=== PATIENT | female | born 1950 | race Caucasian/White ===

== ENCOUNTER 2023-09-18 22:49 | Emergency (ER) | payer MEDICARE, SELFPAY ==
[2023-09-18 22:57] VITALS: BP 198/98; PULSE 81; RESP 16; TEMP 36.4; O2SAT 98; BMI 27.9
--- NOTE | 2023-09-18 23:01 | CT_ITS ---
Patient: KATHY CALIXTO Facility:?[facility] RIS Patient ID:?[id number] Site Patient ID:?[id number]. Site :?[id number] Study:?CT-Spine Cervical-09/18/2023 11:39:54 PM Ordering Physician:Aspen Final Report: Indication: Injury, fall backwards, back of head impact Technique: Noncontrast CT through the cervical spine with multiplanar reformats Comparison: None Findings: Alignment: Nonspecific straightening of the normal lordotic curvature. Slight leftward lateral listing, may be positional. Bones: Postoperative changes are noted from C3-C7 ACDF and C3-T1 posterior edmundo and screw fixation with C5-6 laminectomies. No evidence hardware failure or loosening. No acute fracture appreciated. No lytic or blastic lesion is seen. Cervical levels: Mild degenerative changes at the unfused levels with no acute abnormality appreciated. Soft tissues: No acute abnormality appreciated. Impression: Extensive postsurgical changes to the cervical spine with no acute abnormality appreciated. Please note that all CT scans at this facility use dose modulation, iterative reconstruction, and/or weight-based dosing when appropriate to reduce radiation dose to as low as reasonably achievable. Dictated by Vincent Vivar MD @ 09/18/2023 11:53:00 PM Signed by:?Vincent Vivar MD @09/18/2023 11:53:00 PM (Electronic Signature)
--- NOTE | 2023-09-18 23:01 | CT_ITS ---
Patient: KATHY CALIXTO Facility:?[facility] RIS Patient ID:?[id number] Site Patient ID:?[id number]. Site :?1950 Study:?CT-Head-09/18/2023 11:40:59 PM Ordering Physician:Aspen Final Report: Indication: Injury, fall backwards, back of head impact Technique: Noncontrast CT through the head with multiplanar reformats Comparison: None Findings: Brain: No acute hemorrhage. No acute infarct. No significant mass effect or midline shift. No gross evidence of a mass lesion or cerebral edema. Mild global parenchymal volume loss. Mild chronic microvascular ischemic disease. Ventricles: No acute abnormality appreciated. Orbits, sinuses, mastoids: No acute abnormality appreciated. Calvarium and soft tissues: No acute abnormality appreciated. Impression: No acute abnormality appreciated. Please note that all CT scans at this facility use dose modulation, iterative reconstruction, and/or weight-based dosing when appropriate to reduce radiation dose to as low as reasonably achievable. Dictated by Vincent Vivar MD @ 09/18/2023 11:55:01 PM Signed by:?Vincent Vivar MD @09/18/2023 11:55:01 PM (Electronic Signature)
--- NOTE | 2023-09-18 23:01 | CT_ITS ---
Patient: KATHY CALIXTO Facility:?[facility] RIS Patient ID:?[id number] Site Patient ID:?[id number]. Site :?1950 Study:?CT-Spine Lumbar without contrast-09/18/2023 11:42:19 PM Ordering Physician:Aspen Final Report: Indication: Injury, fall backwards, impact the lumbar spine Technique: Noncontrast CT through the lumbar spine with multiplanar reformats Comparison: None Findings: Alignment: Mild L4-5 anterolisthesis. Trace leftward curvature. Bones: No acute fracture. No lytic or blastic lesion. Transitional anatomy noted with partial lumbarization of S1 and a near-complete S1-2 disc space. Lumbar levels: No acute abnormality appreciated. Multilevel degenerative changes. Suspect severe central stenosis at L4-5 and L5-S1 severe foraminal narrowing noted at L5-S1. Soft tissues: No acute abnormality appreciated. Impression: Severe lower lumbar degenerative changes with no acute abnormality appreciated. Please note that all CT scans at this facility use dose modulation, iterative reconstruction, and/or weight-based dosing when appropriate to reduce radiation dose to as low as reasonably achievable. Dictated by Vincent Vivar MD @ 09/18/2023 11:58:42 PM Signed by:?Vincent Vivar MD @09/18/2023 11:58:42 PM (Electronic Signature)
--- NOTE | 2023-09-18 23:05 | ED_ITS ---
HPI - Head Injury General Chief complaint: Head Injury/Pain Stated complaint: Fell, hit head Time Seen by Provider: 09/18/23 22:52 Source: patient Mode of arrival: ambulatory Limitations: no limitations History of Present Illness HPI Narrative: Patient is a 72-year-old female with a history of high cholesterol presenting to the emergency department after a fall. She states she was bending over to pick something up when she has lost her balance falling forward hitting her head on the ground. She states she hit her forehead. Does have tenderness to her forehead and took some Tylenol prior to coming. She spoke to the triage nurse and was told to come in. She is not currently on any blood thinners. She does states she also hit her right elbow and knee but the pain is rather minimal at this time and she has full range of motion. She has been able to walk without issue. Also complains of neck pain after the fall, for which she has had surgeries for in the past, and lower lumbar pain. Denies any lightheadedness or dizziness before or after the fall. She is acting at her baseline at this time according to her daughter. No other concerns noted. Related Data Home Medications Medication Instructions Recorded Confirmed atorvastatin 20 mg tablet 20 mg PO DAILY 09/18/23 09/18/23 duloxetine 60 mg capsule,delayed 60 mg PO DAILY 09/18/23 09/18/23 release gabapentin 100 mg capsule 100 mg PO QAM 09/18/23 gabapentin 300 mg capsule mg PO 09/18/23 Allergies Allergy/AdvReac Type Severity Reaction Status Date / Time Sulfa (Sulfonamide Allergy Verified 09/18/23 23:02 Antibiotics) penecillin Allergy Uncoded 09/18/23 23:02 Review of Systems Narrative: Pertinent systems reviewed and were negative unless stated in HPI PFSH PFS Social History Do you use any of these nicotine containing products: None Non-prescribed substance use: denies use Exam Narrative: Exam Narrative: Const: Well-nourished, Well-developed, in mild distress Eyes: PERRL, no conjunctival injection, and symmetrical lids HENT: Atraumatic external nose and ears. Moist mucous membranes. Hematoma noted to forehead Neck: Symmetric, trachea midline, No thyromegaly. CVS: RRR, No murmurs or gallops. Peripheral pulses 2+ and equal in all extremities RESP: Unlabored respiratory effort. Clear to auscultation bilaterally. GI: Nontender/Nondistended, No rebound or guarding. MSK:Extremities w/o deformity, Normal Active ROM, tenderness noted to midline lower lumbar around L4-L5 and midline cervical spine around C4 Skin: Warm, Dry. No rashes or lesions. Neuro: Normal Muscle tone, No focal neurological deficits. Psych: Awake, Alert, & Oriented x3. Appropriate mood and affect. Const: Vital Signs, click to edit/add: Vital Signs - 24 hr 09/18/23 22:57 Temperature 97.5 F L Pulse Rate [Pulse Oximeter] 81 Respiratory Rate 16 Blood Pressure [Ri ght Upper Arm] 198/98 H Pulse Oximetry 98 Oxygen Delivery Me thod Room Air Course Vital Signs Vital signs: Initial Vital Signs Temperature 97.5 F L 09/18/23 22:57 Temperature Source Temporal Artery Scan 09/18/23 22:57 Pulse Rate 81 09/18/23 22:57 Respiratory Rate 16 09/18/23 22:57 Blood Pressure 198/98 H 09/18/23 22:57 Blood Pressure Mean 131 H 09/18/23 22:57 Blood Pressure Position Sitting 09/18/23 22:57 Pulse Oximetry 98 09/18/23 22:57 Oxygen Delivery Method Room Air 09/18/23 22:57 Vital Signs Temperature 97.5 F L 09/18/23 22:57 Pulse Rate 81 09/18/23 22:57 Respiratory Rate 16 09/18/23 22:57 Blood Pressure 198/98 H 09/18/23 22:57 Pulse Oximetry 98 09/18/23 22:57 Oxygen Delivery Method Room Air 09/18/23 22:57 Temperature 97.5 F L 09/18/23 22:57 Pulse Rate 81 09/18/23 22:57 Respiratory Rate 16 09/18/23 22:57 Blood Pressure 198/98 H 09/18/23 22:57 Pulse Oximetry 98 09/18/23 22:57 Oxygen Delivery Method Room Air 09/18/23 22:57 Medications Administered Medications: Generic Name Dose Route Start Last Admin Trade Name Freq PRN Reason Stop Dose Admin Ketorolac Tromethamine 30 mg 09/18/23 23:38 09/18/23 23:47 Ketorolac 30 Mg/Ml Inj IM 09/18/23 23:39 30 mg ONCE ONE Administration MDM - Head Injury MDM Narrative Medical decision making narrative: Patient is a 72-year-old female presenting after a fall. This was mechanical fall in nature per the patient. There is no lightheadedness or dizziness associated with the fall. She has not any blood thinners. We will do a CT scan of her head and cervical spine. She is having lower lumbar tenderness of while doing the other CTs we will just do a lumbar spine CT also. The pain to her knee and elbow was very very minimal and did not believe x-rays are necessary she has full range of motion of these joints. Fractures seems very unlikely. This fall does not seem related to any lightheadedness or dizziness or not believe lab work or EKG is necessary at this time. Imaging reviewed myself and the radiologist showed no concerning abnormalities. She will be discharged home at this time. Imaging Data Cervical Spine CT: Attestation: I have reviewed the pertinent imaging results. Radiologist's impression: Extensive postsurgical changes to the cervical spine with no acute abnormality appreciated. Please note that all CT scans at this facility use dose modulation, iterative reconstruction, and/or weight-based dosing when appropriate to reduce radiation dose to as low as reasonably achievable. Dictated by Vincent Vivar MD @ 09/18/2023 11:53:[address]: Attestation: I have reviewed the pertinent imaging results. Radiologist's impression: No acute abnormality appreciated. Please note that all CT scans at this facility use dose modulation, iterative reconstruction, and/or weight-based dosing when appropriate to reduce radiation dose to as low as reasonably achievable. Dictated by Vincent Vivar MD @ 09/18/2023 11:55:[address]: Attestation: I have reviewed the pertinent imaging results. Radiologist's impression: Severe lower lumbar degenerative changes with no acute abnormality appreciated. Please note that all CT scans at this facility use dose modulation, iterative reconstruction, and/or weight-based dosing when appropriate to reduce radiation dose to as low as reasonably achievable. Dictated by Vincent Vivar MD @ 09/18/2023 11:58:42 PM Discharge Plan Discharge Clinical Impression: Lumbar strain Qualifiers: Encounter type: initial encounter Qualified Code(s): S39.012A - Strain of muscle, fascia and tendon of lower back, initial encounter Closed head injury Qualifiers: Encounter type: initial encounter Qualified Code(s): S09.90XA - Unspecified injury of head, initial encounter Patient Disposition: Home, Self-Care Condition: Stable Instructions: Head Injury (ED), Low Back Strain (ED) Additional Instructions: Take Tylenol and ibuprofen for your pain. If pain persist follow-up with your primary care provider. Return to emergency department for new or worsening symptoms. Prescriptions: No Action atorvastatin 20 mg tablet 20 mg PO DAILY gabapentin 100 mg capsule 100 mg PO QAM gabapentin 300 mg capsule PO duloxetine 60 mg capsule,delayed release(DR/EC) 60 mg PO DAILY Follow Up/Referrals: Amelia Xiong MD [Primary Care Provider] - Stand Alone Forms: [employer] Info Instructions
[2023-09-18] MEDS: KETOROLAC 30 MG/ML inj IM (23:47)
== END 2023-09-19 00:09 | disposition home or self-care (01) ==
LOC: ED 09-19 00:03
PROVIDERS: Emergency Provider Student in an Organized Health Care Education/Training Program
DX: S09.90XA Unspecified injury of head, initial encounter (principal); S39.012A Strain of muscle, fascia and tendon of lower back, initial encounter; W18.30XA Fall on same level, unspecified, initial encounter
CPT/HCPCS: 70450; 72125; 72131; 96372; 99283; 99284; 99285; J1885

== ENCOUNTER 2023-09-25 17:30 | Emergency (ER) | payer MEDICARE, SELFPAY ==
[2023-09-25 17:50] VITALS: BP 189/95; PULSE 72; RESP 14; TEMP 36.2; O2SAT 96; BMI 26.3
--- NOTE | 2023-09-25 18:01 | ED.GENADULT ---
HPI - General Adult General Date Seen: 09/25/23 Chief complaint: Head Injury/Pain Stated complaint: trouble walking Time Seen by Provider: 09/25/23 17:56 History of Present Illness HPI narrative: 72-year-old female presenting to the ER for evaluation of headache and symptoms after she had a head injury 1 week ago, last . She fell 2 ft and hit her forehead. She is having trouble focusing her eyes and her balance feels off. She was seen in the ER on September 17, the day of her injury. According to the record she was bending over to pick something up when she lost her balance and fell forward, striking her head on the ground. She hit her forehead. No blood thinners. Ambulation was normal. She had a C-spine CT that showed extensive postsurgical changes but no trauma. She had a head CT that showed no acute abnormality. Patient recalls that on the day of injury she does not think she was knocked out and she really did not have much of a headache. She had called the triage line and was told to come in because her age was above 64. She was doing pretty well last Friday. On Friday she began to have worsening symptoms of headache, episodes of dizziness unsteady gait, episodes of blurry unfocused vision. She is not really having a lot of nausea. No vomiting. No confusion. No slurred speech. She notes that the episodes of dizziness and blurry vision have been coming and going all week long. She tried to drive once a few days ago and did feel very blurry and dizzy while driving. Today she was driving for the 2nd time this week to take her daughter to the Urgent Care to be checked for UTI and node noted that she got very unsteady and very blurry vision while driving. She was unsteady and having trouble walking unsupported in the urgent care so the urgent care doctor insisted that she come to the ER to be rechecked and get a repeat head CT scan. She does not take any blood thinners. No history of coagulopathy your bone marrow problems. She also notes that her low back was bryan when she fell. She has plans to see her doctor because she has chronic low back pain and she plans to get another steroid injection for her back. No new numbness or weakness or tingling down her arms or legs. No focal weakness. No slurred speech. No facial droop. He she is not confused. She she and her daughter feel like her memory is normal. Her main symptoms that she is unsteady with walking and a little bit tremulous. Related Data Home Medications Medication Instructions Recorded Confirmed atorvastatin 20 mg tablet 20 mg PO DAILY 09/18/23 09/25/23 duloxetine 60 mg capsule,delayed 60 mg PO DAILY 09/18/23 09/25/23 release gabapentin 100 mg capsule 100 mg PO QAM 09/18/23 09/25/23 gabapentin 300 mg capsule mg PO 09/18/23 alendronate 70 mg tablet mg PO 09/25/23 celecoxib 100 mg capsule 100 mg PO DAILY 09/25/23 09/25/23 valacyclovir 1 gram tablet 2,000 mg PO 09/25/23 Allergies Allergy/AdvReac Type Severity Reaction Status Date / Time Penicillins Allergy Unknown Verified 09/25/23 17:51 Sulfa (Sulfonamide Allergy Verified 09/18/23 23:02 Antibiotics) [facility] Social History Do you use any of these nicotine containing products: None Non-prescribed substance use: denies use Exam Narrative: Exam Narrative: Constitutional: Appears well-developed and well-nourished. Alert. Conversant. Non toxic. HENT: Head: She does have subtle yellowish/greenish ecchymosis on her forehead. Exam head trauma. Nose: Nose normal. Mouth/Throat: Oral mucosa is clear and moist. no trismus. Pharynx normal. Tonsils symmetric. No tonsillar enlargement, erythema, or exudate. Eyes: Conjunctivae normal. EOM normal. Pupils equal, round, and reactive to light. No scleral icterus. Neck: Normal range of motion. Neck supple. No tracheal deviation present. Cardiovascular: Normal rate, regular rhythm. No gallop. No friction rub. No murmur heard. Symmetric radial artery pulses Pulmonary/Chest: Effort normal. No stridor. No respiratory distress. No wheezes. No rales. No rhonchi . No tenderness. Abdominal: Soft. Bowel sounds normal. No distension. No mass. No tenderness. No rebound. No guarding. Musculoskeletal: RUE: Normal range of motion. No tenderness. No deformity LUE: Normal range of motion. No tenderness. No deformity RLE: Normal range of motion. No edema. No tenderness. No deformity LLE: Normal range of motion. No edema. No tenderness. No deformity Neurological: Mental status normal. Attention normal. Alert and oriented x3. GCS 15. Memory normal. Speech fluent. Cognition normal. Cranial Nerves intact II-XII except I did not formally test gag or visual acuity. EOMI. Palate elevates symmetrically and tongue protrudes in the midline. Strength: 5/5 trapezius on the right and left 5/5 deltoid on the right and left 5/5 biceps on the right and left 5/5 triceps on the right and left 5/5 healthcare representative on the right and left 5/5 thumb opposition on the right and left 5/5 finger abduction on the right and left 5/5 hip flexors (L3) on the right and left 5/5 quadriceps (L4) on the right and left 5/5 tibialis anterior on the right and left 5/5 EHL (L5) on the right and left 5/5 gastrocnemius (S1) on the right and left 5/5 hamstring on the right and left Sensation intact to light touch in both upper extremities (C4-T1) Sensation intact to light touch in Both lower extremities (L4-S1). Finger to nose is slow and she has a bit of a tremor when with doing her [id number]. and coordination normal. Romberg normal. She is able to walk but she is a little bit slow and wide-based with her gait. Skin: Skin is warm and dry. No rash noted. No pallor. Normal capillary refill. Psychiatric: Normal mood. Normal affect. Const: Vital Signs, click to edit/add: Vital Signs - 24 hr 09/25/23 17:50 09/25/23 19:19 Temperature 97.1 F L Pulse Rate [Pulse Oximeter] 72 66 Respiratory Rate 14 16 Blood Pressure [[facility] Upper Arm] 189/95 H 156/92 H Pulse Oximetry 96 97 Oxygen Delivery Me thod Room Air Room Air Course Course ED Course: Recheck-feeling somewhat better after ibuprofen. I repeated my neuro exam an ambulation trial. She is still mildly unsteady but much steadier than when she arrived. She feels steady enough and is eager to discharge home with her family. Vital Signs Vital signs: Initial Vital Signs Temperature 97.1 F L 09/25/23 17:50 Temperature Source Temporal Artery Scan 09/25/23 17:50 Pulse Rate 72 09/25/23 17:50 Pulse Rhythm Regular 09/25/23 17:50 Respiratory Rate 14 09/25/23 17:50 Blood Pressure 189/95 H 09/25/23 17:50 Blood Pressure Mean 126 H 09/25/23 17:50 Blood Pressure Position Supine 09/25/23 17:50 Pulse Oximetry 96 09/25/23 17:50 Oxygen Delivery Method Room Air 09/25/23 17:50 Vital Signs Temperature 97.1 F L 09/25/23 17:50 Pulse Rate 72 09/25/23 17:50 Respiratory Rate 14 09/25/23 17:50 Blood Pressure 189/95 H 09/25/23 17:50 Pulse Oximetry 96 09/25/23 17:50 Oxygen Delivery Method Room Air 09/25/23 17:50 Temperature 97.1 F L 09/25/23 17:50 Pulse Rate 66 09/25/23 19:19 Respiratory Rate 16 09/25/23 19:19 Blood Pressure 156/92 H 09/25/23 19:19 Pulse Oximetry 97 09/25/23 19:19 Oxygen Delivery Method Room Air 09/25/23 19:19 Medications Administered Medications: Discontinued Medications Generic Name Dose Route Start Last Admin Trade Name Cal PRN Reason Stop Dose Admin Acetaminophen 1,000 mg 09/25/23 18:24 09/25/23 18:29 Acetaminophen 500 Mg Tablet PO 09/25/23 18:25 1,000 mg ONCE ONE Administration Medical Decision Making [facility] Narrative Medical decision making narrative: This patient presents with blunt head trauma that occurred a week ago. She was seen in the ER on the day of injury and had negative head CT and C-spine CT. She returns to the ER today for worsening symptoms of intermittent dizziness and unsteadiness, headaches, and intermittent blurry vision. Symptoms got much worse today when she was driving in her car (to take her daughter to a doctor's appointment).. Differential includes intracranial injuries (e.g. skull fracture, epidural hematoma, subdural hematoma, intracerebral hemorrhage, and traumatic subarachnoid hemorrhage), verses concussion or other traumatic brain injury. Discussed with the patient that there is low likelihood for delayed bleeding but given progression of symptoms we decided to repeat head CT. Today, CT imaging was obtained and fortunately was normal. At this time it appears that the patient's symptoms are due to a concussion. The patient/family understand that they must return if any red flags appear/develop in the coming hours/days, as this may represent an indication to perform a repeat CT scan or further evaluation. I have noted that red flags include: headaches that get worse, increased drowsiness, strange behavior, repetitive speech, seizures, repeated vomiting, growing confusion, increased irritability, slurred speech, weakness or numbness, and loss of responsiveness. This information will also be provided in writing at discharge. I have discussed the second impact syndrome, and the importance of not sustaining repeated concussion in the next 1-2 weeks. Post concussive syndrome is also discussed. The patient's questions have been answered. They have a responsible adult to accompany them home Recommend outpatient follow-up with primary care within 1 week. Also discussed that she would probably benefit from follow-up at a concussion/TBI Clinic. Given referral and contact information for [facility]. She will likely follow up with her primary care 1st and then if necessary, later with the TBI clinic. Imaging Data CT scan - head: Attestation: I have reviewed the pertinent imaging results. Radiologist's impression: IMPRESSION: 1. No acute intracranial abnormality 2. Normal brain parenchymal morphology 3. No interval change Discharge Plan Discharge Clinical Impression: Concussion Patient Disposition: Home, Self-Care Condition: Stable Instructions: Concussion (ED) Additional Instructions: As we discussed, it may take some time for your concussion to heal. While your healing, avoid activities that triggers symptoms such as driving. Please follow-up with your regular doctor for recheck within the next 3-5 days. You can also call the traumatic Brain Injury Clinic at [facility]. You can call [phone] to arrange an appointment. It is possible that you may need to see your primary doctor for prior authorization before you can see the concussion clinic. Return to the ER right away if you have worsening symptoms or any concerns. Prescriptions: No Action valacyclovir 1 gram tablet 2,000 mg PO alendronate 70 mg tablet PO Patient Comments: PLEASE SEE ATTACHED FOR DETAILED DIRECTIONS celecoxib 100 mg capsule 100 mg PO DAILY atorvastatin 20 mg tablet 20 mg PO DAILY gabapentin 100 mg capsule 100 mg PO QAM gabapentin 300 mg capsule PO duloxetine 60 mg capsule,delayed release(DR/EC) 60 mg PO DAILY Follow Up/Referrals: Provider,Not a Local [Primary Care Provider] - Stand Alone Forms: [employer] Info Instructions
--- NOTE | 2023-09-25 18:24 | CT_ITS ---
Patient: KATHY CALIXTO Facility:?[facility] RIS Patient ID:?[id number] Site Patient ID:?[id number]. Site :?[id number] Study:?CT-Head W/O-09/25/2023 6:44:48 PM Ordering Physician:PETRA Final Report: INDICATION: Difficulty walking. Comparison 09/18/2023. TECHNIQUE: Noncontrast CT head. FINDINGS: Normal brain parenchymal morphology. No acute intracranial hemorrhage, acute infarct, focal edema, mass effect, or fracture. No midline shift. No abnormal ventricular dilatation. Normal calvarium and skull base. Visualized paranasal sinuses and mastoid air cells are clear. Normal orbits bilaterally. IMPRESSION: 1. No acute intracranial abnormality 2. Normal brain parenchymal morphology 3. No interval change Please note that all CT scans at this facility use dose modulation, iterative reconstruction, and/or weight-based dosing when appropriate to reduce radiation dose to as low as reasonably achievable. Dictated by Nicanor Vogel MD @ 09/25/2023 7:05:27 PM Signed by:?Nicanor Vogel MD @09/25/2023 7:05:27 PM (Electronic Signature)
[2023-09-25] MEDS: ACETAMINOPHEN 500 MG TABLET 1000 MG PO (18:29)
[2023-09-25 19:19] VITALS: BP 156/92; PULSE 66; RESP 16; O2SAT 97
== END 2023-09-25 20:21 | disposition home or self-care (01) ==
PROVIDERS: Emergency Provider Emergency Medicine
DX: S06.0X0A Concussion without loss of consciousness, initial encounter (principal); W18.30XA Fall on same level, unspecified, initial encounter
CPT/HCPCS: 70450; 99283; 99284; A9270